=== PATIENT | female | born 2000 | race Caucasian/White ===

== ENCOUNTER 2020-10-12 22:48 | Emergency (ER) | payer MEDICAID ==
[~2020-10-12] VITALS: Ht 162.6 cm; Wt 66.0 kg
[2020-10-12 23:42] VITALS: BP 128/82
[2020-10-13] MEDS ORDERED: ACETAMINOPHEN 325MG TABLET PO ONE
[2020-10-13] MEDS ORDERED: IBUPROFEN 400MG TABLET PO ONE
[2020-10-13] MEDS ORDERED: AMOX-424 MT (01:33)
== END 2020-10-13 02:16 | disposition home or self-care (01) ==
LOC: ER 22:48
DX: J32.9 Chronic sinusitis, unspecified (principal)
CPT/HCPCS: 81025; 87804; 99283